=== PATIENT | male | born 1955 | race Caucasian/White ===

== ENCOUNTER → 2024-08-02 09:08 | Outpatient (REF) | payer OTHER, SELFPAY | LOC: RAD 09:08 | PROVIDERS: ATTENDING PHYSICIAN Student in an Organized Health Care Education/Training Program | DX: R93.1 Abnormal findings on diagnostic imaging of heart and coronary circulation (principal); E78.5 Hyperlipidemia, unspecified | CPT/HCPCS: 75571 ==